=== PATIENT | male | born 1995 | race Hispanic/Latino ===

== ENCOUNTER 2017-10-12 12:37 | Outpatient (CLI) | payer BC ==
--- NOTE | 2017-10-13 11:19 | XRay Report ---
RIGHT HIP RADIOGRAPHS INDICATION: Hip pain. COMPARISON: None similar at this institution. FINDINGS: An AP pelvic radiograph with frog-leg projection of the right hip demonstrate intact articulation. Imaged bilateral SI and hip joints appear intact. Nonobstructive bowel gas pattern. CONCLUSION: No acute hip radiographic abnormality. Thank you for the opportunity to participate in this patient's care.
== END 2017-10-12 12:38 | disposition home or self-care (01) ==
LOC: XRAY 12:37
DX: M25.551 Pain in right hip (principal)

== ENCOUNTER 2017-11-24 13:53 | Outpatient (CLI) | payer BC ==
--- NOTE | 2017-11-24 16:41 | Cat Scan Report ---
FINAL REPORT EXAM: CT PELVIS W CON HISTORY: PAIN IN RIGHT HIP TECHNIQUE: Spiral CT scanning of the pelvis. No oral or IV contrast administered. Multiplanar reformations. PRIORS: None. FINDINGS: Bony pelvis grossly intact. No apparent fracture or dislocation. Soft tissues grossly unremarkable. Visualized bowel grossly unremarkable. Appendix within normal limits. No significant free peritoneal fluid. IMPRESSION: 1. No acute osseous abnormality.
== END 2017-11-24 13:54 | disposition home or self-care (01) ==
LOC: CT 13:53
PROVIDERS: ATTEND Orthopaedic Surgery
DX: M25.551 Pain in right hip (principal)
CPT/HCPCS: 72193; Q9967

== ENCOUNTER 2017-12-12 09:30 | Outpatient (CLI) | payer BC ==
--- NOTE | 2017-12-12 14:01 | Nuclear Medicine Report ---
BONE SCAN: History: Pain in right hip. Comparison: MR right hip dated 11/09/17. CT pelvis with contrast dated 11/24/17. After injection of isotope, gamma camera imaging of the bony system was done. There is a normal uptake of isotope throughout the bony structures without areas of significantly increased or decreased uptake. Normal uptake in the urinary system is seen. IMPRESSION: Normal bone scan. No abnormal uptake in the right hip/femoral neck region is identified.
== END 2017-12-12 09:31 | disposition home or self-care (01) ==
LOC: NM 09:30
PROVIDERS: ATTEND Orthopaedic Surgery
DX: M25.551 Pain in right hip (principal)
CPT/HCPCS: 78306; A9503